=== PATIENT | male | born 1985 | race Caucasian/White ===

== ENCOUNTER 2023-02-04 09:21 | Emergency (ER) | payer BC, SELFPAY ==
[2023-02-04 09:22] VITALS: BP 135/105; PULSE 60; RESP 18; TEMP 36.8; O2SAT 100
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
--- NOTE | 2023-02-04 10:44 | NUR.NOTE ---
Faxed the provider's note to [facility] as requested. Nursing Note:
[2023-02-04] MEDS: Tetanus & Diphtheria Tox,ADULT 0.5 ML VIAL IM (10:57)
[2023-02-04] MEDS: Ibuprofen 600 MG TAB PO (10:58)
[2023-02-04] MEDS: Lidocaine 2% Jelly 11 ML SYR UR (10:58)
== END 2023-02-04 11:13 | disposition home or self-care (01) ==
PROVIDERS: Emergency Provider Emergency Medicine
DX: T20.211A Burn of second degree of right ear [any part, except ear drum], initial encounter (principal); T21.23XA Burn of second degree of upper back, initial encounter; X12.XXXA Contact with other hot fluids, initial encounter
CPT/HCPCS: 16020; 90471